=== PATIENT | female | born 1995 | race African-American/Black ===

== ENCOUNTER 2022-09-23 02:51 | Emergency (ER) | payer MEDICAID, OTHER ==
[~2022-09-23] VITALS: Ht 170.2 cm; Wt 140.9 kg
[2022-09-23] MEDS ORDERED: IBUP800T27 PO (05:10)
[2022-09-23] MEDS ORDERED: AMOX-277 PO (05:10)
[2022-09-23] MEDS ORDERED: HUR60 MT (05:10)
[2022-09-23] MEDS ORDERED: KETOROLAC TROMETH 60MG/2ML VIAL IM ONE (05:15)
[2022-09-23 06:11] VITALS: BP 111/78
== END 2022-09-23 06:15 | disposition home or self-care (01) ==
LOC: ER 02:51
DX: S02.5XXA Fracture of tooth (traumatic), initial encounter for closed fracture (principal); Z88.1 Allergy status to other antibiotic agents; Z88.6 Allergy status to analgesic agent; X58.XXXA Exposure to other specified factors, initial encounter; Y93.89 Activity, other specified; Y92.89 Other specified places as the place of occurrence of the external cause; Y99.8 Other external cause status
CPT/HCPCS: 96372; 99283; J1885

== ENCOUNTER 2024-06-07 09:20 | Emergency (ER) | payer MEDICAID ==
[~2024-06-07] VITALS: Ht 170.2 cm; Wt 147.1 kg
[~2024-06-07 09:20] MED LIST: AMOX875T4 PO; HUR60 MT; IBUP-1456 PO
--- NOTE | 2024-06-07 10:16 | DVH ---
LEFT KNEE RADIOGRAPHS CLINICAL HISTORY: left knee pain, traumatic TECHNIQUE: 3 views of the left knee. Comparison: None FINDINGS/IMPRESSION: There is no evidence of fracture or dislocation. The alignment of the left knee is appropriate. Joint spaces are maintained. There is no significant joint effusion.The surrounding soft tissues appear un remarkable. HS:Y
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
[2024-06-07] MEDS ORDERED: IBUP-1455 PO (10:37)
[2024-06-07 11:13] VITALS: BP 141/48; TEMP 97.9
[2024-06-07 11:14] VITALS: PULSE 76; RESP 17; O2SAT 94
== END 2024-06-07 11:15 | disposition home or self-care (01) ==
LOC: ER 09:20
DX: M23.92 Unspecified internal derangement of left knee (principal)
CPT/HCPCS: 73562